=== PATIENT | female | born 1970 | race Caucasian/White ===

== ENCOUNTER → 2016-05-08 | Outpatient (CLI) | payer BC ==
[~2016-05-08] MED LIST: ASPI325T45 PO; BCPILLS PO; CALC1CHW PO; FLCO60 EX; LEVO100T PO; MULT-506 PO
== END | disposition home or self-care (01) ==
LOC: C.PATHSPEC 15:13
PROVIDERS: ATTEND Dentist Endodontics
DX: K04.7 Periapical abscess without sinus (principal)

== ENCOUNTER → 2016-09-23 | Outpatient (CLI) | payer BC ==
--- NOTE | 2016-09-23 16:06 | MAMMOGRAPHY REPORT ---
BILATERAL DIGITAL SCREENING MAMMOGRAM TOMOSYNTHESIS WITH CAD: 09/23/2016 CLINICAL HISTORY: Routine screening. Patient has no complaints. TECHNIQUE: Breast tomosynthesis in addition to standard 2D mammography was performed. Current study was also evaluated with a Computer Aided Detection (CAD) system. COMPARISON: Comparison is made to exams dated: 09/21/2015 mammogram, 09/18/2014 mammogram, 09/15/2013 m ammogram, 09/14/2012 mammogram, 03/26/2012 mammogram, and 09/15/2011 [facility]ogram - [facility]. BREAST COMPOSITION: The tissue of both breasts is heterogeneously dense, which may obscure small mas ses. FINDINGS: The parenchymal pattern is similar to prior exams. There is stable asymmetry in the upper outer posterior left breast. No new suspicious mass, architectural distortion or cluster of microcal cifications is seen. IMPRESSION: ACR BI-RADS CATEGORY 1: NEGATIVE There is no mammographic evidence of malignancy. A 1 year screening mammogram is recommended. The pa tient will receive written notification of the results. Approximately 10% of breast cancers are not detected with mammography. A negative mammographic report should not delay biopsy if a clinically suggestive mass is present. Sara Henriquez M.D. ay/:09/23/2016 13:08:57 Firer Retort: Sima OKEEFE)(Cyndi)(BD), [facility] letter sent: Normal 1/2 BI-RADS Code: ACR BI-RADS Category 1: Negative
== END | disposition home or self-care (01) ==
LOC: C.MAMM 08:58
PROVIDERS: ATTEND Nurse Practitioner Family
DX: Z12.31 Encounter for screening mammogram for malignant neoplasm of breast (principal)

== ENCOUNTER → 2017-02-25 | Outpatient (CLI) | payer OTHER | END | disposition home or self-care (01) | LOC: C.PAPS 15:05 | PROVIDERS: ATTEND Obstetrics & Gynecology | DX: Z12.4 Encounter for screening for malignant neoplasm of cervix (principal) ==

== ENCOUNTER → 2017-09-29 | Outpatient (CLI) | payer OTHER ==
[~2017-09-29] MED LIST changes: +ASPECOTC PO; -ASPI325T45 PO
--- NOTE | 2017-09-30 13:37 | MAMMOGRAPHY REPORT ---
BILATERAL DIGITAL SCREENING MAMMOGRAM TOMOSYNTHESIS WITH CAD: 09/29/2017 CLINICAL HISTORY: Routine screening. Patient has no complaints. TECHNIQUE: The study was acquired using full field digital technology and interpreted from soft copy. Breast tomosynthesis in addition to standard 2D mammography was performed. Current study was also ev aluated with a Computer Aided Detection (CAD) system. COMPARISON: Comparison is made to exams dated: 09/23/2016 mammogram, 09/21/2015 mammogram, 09/18/2014 ma mmogram, 09/15/2013 mammogram, 03/26/2012 mammogram, and 09/04/2011 mammogram - [facility]. BREAST COMPOSITION: There are scattered areas of fibroglandular density in both breasts. FINDINGS: There is an 8.7 mm focal asymmetry in the upper inner middle one third of the right breast, for which additional spot compression tomosynthesis views and possible ultrasound are recommended. No other suspicious mass, architectural distortion or cluster of microcalcifications is seen bilatera lly. IMPRESSION: ACR BI-RADS CATEGORY 0: INCOMPLETE EVALUATION: NEED ADDITIONAL IMAGING EVALUATION The 8.7 mm focal asymmetry in the upper inner right breast needs additional evaluation. The patient will be called to schedule an appointment. Some breast cancers are not detected with mammography. A negative mammographic report should not mariah y biopsy if a clinically suggestive mass is present. Sara Henriquez M.D. ay/:09/29/2017 14:55:51 Pillowcase Maker: RT Ya(R)(M), [facility] letter sent: Addl Imaging 0 BI-RADS Code: ACR BI-RADS Category 0: Incomplete Evaluation: Need Additional Imaging Evaluation
== END | disposition home or self-care (01) ==
LOC: C.MAMM 08:57
PROVIDERS: ATTEND Nurse Practitioner Family
DX: Z12.31 Encounter for screening mammogram for malignant neoplasm of breast (principal); N64.9 Disorder of breast, unspecified

== ENCOUNTER → 2017-10-02 | Outpatient (CLI) | payer OTHER ==
--- NOTE | 2017-10-02 15:26 | MAMMOGRAPHY REPORT ---
UNILATERAL RIGHT DIGITAL DIAGNOSTIC MAMMOGRAM TOMOSYNTHESIS AND TARGETED RIGHT ULTRASOUND: 10/02/2017 CLINICAL HISTORY: Callback from screening mammogram for right breast focal asymmetry. TECHNIQUE: The study was acquired using full field digital technology and interpreted from soft copy. Breast tomosynthesis in addition to standard 2D mammography was performed. Spot compression right C C and MLO 2D and tomosynthesis images were obtained. COMPARISON: Comparison is made to exams dated: 09/29/2017 mammogram, 09/23/2016 mammogram, 09/21/2015 [facility] mogram, 09/18/2014 mammogram, 09/15/2013 mammogram, and 03/26/2012 mammogram - [facility]. BREAST COMPOSITION: There are scattered areas of fibroglandular density in right breast. FINDINGS: Spot compression views demonstrate a persistent focal asymmetry measuring approximately 9 mm within t he right upper inner quadrant. Targeted ultrasound was performed of the right upper inner quadrant i n the region of the mammographic asymmetry. In the right 1:00 breast, 5 cm from the nipple, there is a lobulated anechoic mass with multiple thin internal septations, measuring 11 x 8 x 5 mm. This cor responds with the mammographic asymmetry and likely represents a cyst cluster however, it does not me et all of the sonographic criteria for a benign cyst. Therefore, ultrasound-guided core needle biops y is recommended for further evaluation. On discussion with the patient, she would prefer not to und ergo biopsy and would prefer short interval follow-up. Therefore, recommend short interval follow-up in 3 months to confirm stability. IMPRESSION: ACR-BI-RADS CATEGORY 3: PROBABLY BENIGN, ULTRASOUND ACR-BI-RADS CATEGORY 3: PROBABLY MINO GN Lobulated 11 mm mass in the right 1:00 breast on ultrasound, which corresponds with the mammographic focal asymmetry. This likely represents a cyst cluster although does not meet all of the sonographic criteria for a benign cyst. Ultrasound-guided core needle biopsy was recommended, however, the michelle ent would instead prefer short interval follow-up. Therefore, recommend follow-up diagnostic tomosyn thesis mammograms and possible ultrasound of the right breast in 3 months to confirm stability. The patient has been verbally notified of the results. Some breast cancers are not detected with mammography. A negative mammographic report should not mariah y biopsy if a clinically suggestive mass is present. Edita Hernandez M.D. ah/:10/02/2017 10:49:23 Mop Handle Assembler: Mervat Gonsalez, [facility]; Edita Hernandez MD, [facility] letter sent: Follow Up Recommended 3 OVERALL STUDY BIRADS: 3 Probably benign
== END | disposition home or self-care (01) ==
LOC: C.MAMM 09:37
PROVIDERS: ATTEND Nurse Practitioner Family
DX: N63.12 Unspecified lump in the right breast, upper inner quadrant (principal)